=== PATIENT | male | born 1940 | race Caucasian/White ===

== ENCOUNTER 2022-04-22 11:48 | Inpatient (IN) ==
[2022-04-22 12:31] LABS: Basophils # 0.1 K/mcL (0.0-0.2); Basophils % 0.8 %; Eosinophils # 0.4 K/mcL (0.0-0.6); Eosinophils % 4.8 %; Hematocrit 25.6 % (37.5-50.1); Hemoglobin 8.1 g/dL (12.9-16.9); Immature Granulocytes % 0.3 % (0-4); Lymphocytes # 1.8 K/mcL (0.6-4.6); Lymphocytes % 22.9 %; Mean Corpuscular HGB Conc 31.6 g/dL (31.6-35.5); Mean Corpuscular Hemoglobin 29.5 pg (28.0-33.3); Mean Corpuscular Volume 93.1 fL (83.0-100.0); Mean Platelet Volume 10.3 fL (9.4-12.4); Monocytes # 0.6 K/mcL (0.0-1.3); Monocytes % 7.9 %; Neutrophils # 5.1 K/mcL (1.6-8.9); Platelet Count 292 K/mcL (140-400); Red Blood Count 2.75 M/mcL (4.19-5.50); Red Cell Distribution Width 16.6 % (11.5-14.5); Segmented Neutrophils % 63.3 %
[2022-04-22 12:45] LABS: INR 1.2; Prothrombin Time 13.5 Seconds (9.4-12.1)
[2022-04-22 12:51] LABS: Albumin 4.1 g/dL (3.5-5.7); Albumin/Globulin Ratio 1.2 (1.1-2.2); Bilirubin,Direct 0.1 mg/dL (0.0-0.2); Bilirubin,Total 0.4 mg/dL (0.3-1.0); Calcium 9.4 mg/dL (8.6-10.3); Globulin 3.5 g/dL (2.4-3.5); Magnesium 2.1 mg/dL (1.6-2.6); Phosphorous 5.2 mg/dL (2.7-4.5); Potassium 4.6 mEq/L (3.5-5.1); Total Protein 7.6 g/dL (6.4-8.9)
[2022-04-22] MEDS ORDERED: Furosemide 40 MG/4 ML VIAL IVP ONE (17:38)
[2022-04-22] MEDS ORDERED: 0.9 % Sodium Chloride 1,000 ML IVC SCH ×2 (17:45→19:32)
[2022-04-22] MEDS ORDERED: MOM Conc 10 ML UD.LIQ PO PRN (19:30)
[2022-04-22] MEDS ORDERED: Ondansetron 4 MG/2 ML VIAL IVP PRN (19:32)
[2022-04-22] MEDS ORDERED: Naloxone 0.4 MG/ML INJ IVP PRN (19:32)
[2022-04-22] MEDS: Gabapentin 300 MG CAPSULE PO SCH (22:44)
[2022-04-22] MEDS: Mirtazapine 15 MG TABLET PO SCH (22:44)
[2022-04-22] MEDS: Doxycycline 100 MG in 0.9 % Sodium Chloride Mini Bag 100 ML IVPB SCH (22:45)
[2022-04-22] MEDS: Sennosides/Docusate Sodium TABLET PO SCH (22:45)
[2022-04-23] MEDS: Doxycycline 100 MG in 0.9 % Sodium Chloride Mini Bag 100 ML IVPB SCH ×2 (05:37→18:59)
[2022-04-23 07:42] LABS: Basophils % 0.4 %; Eosinophils # 0.4 K/mcL (0.0-0.6); Eosinophils % 5.5 %; Hematocrit 22.8 % (37.5-50.1); Hemoglobin 7.2 g/dL (12.9-16.9); Immature Granulocytes % 0.3 % (0-4); Lymphocytes # 1.7 K/mcL (0.6-4.6); Lymphocytes % 25.2 %; Mean Corpuscular HGB Conc 31.6 g/dL (31.6-35.5); Mean Corpuscular Hemoglobin 29.3 pg (28.0-33.3); Mean Corpuscular Volume 92.7 fL (83.0-100.0); Mean Platelet Volume 10.1 fL (9.4-12.4); Monocytes # 0.6 K/mcL (0.0-1.3); Monocytes % 8.6 %; Platelet Count 253 K/mcL (140-400); Red Blood Count 2.46 M/mcL (4.19-5.50); Red Cell Distribution Width 16.6 % (11.5-14.5); White Blood Count 6.7 K/mcL (4.3-11.1)
[2022-04-23 07:55] LABS: Magnesium 2.1 mg/dL (1.6-2.6); Potassium 4.4 mEq/L (3.5-5.1)
[2022-04-23 09:10] LABS: Adenovirus Not Detected (Not Detect); Coronavirus 229E Not Detected (Not Detect); Coronavirus HKU1 Not Detected (Not Detect); Coronavirus NL63 Not Detected (Not Detect); Coronavirus OC43 Not Detected (Not Detect); Human Metapneumovirus Not Detected (Not Detect); Human Rhinovirus/Enterovirus Not Detected (Not Detect); SARS-CoV-2 Not Detected (Not Detect)
[2022-04-23 09:11] LABS: Bordetella Pertussis Not Detected (Not Detect); Chlamydophila pneumoniae Not Detected (Not Detect); Influenza A Subtype 2009 H1 Not Detected (Not Detect); Influenza B Not Detected (Not Detect); Mycoplasma pneumoniae Not Detected (Not Detect); Parainfluenza Virus 1 Not Detected (Not Detect); Parainfluenza Virus 2 Not Detected (Not Detect); Parainfluenza Virus 3 Not Detected (Not Detect); Parainfluenza Virus 4 Not Detected (Not Detect); Respiratory Syncytial Virus Not Detected (Not Detect)
[2022-04-23] MEDS: Venlafaxine XR (24 HR) 75 MG CAP.ER.24H PO SCH (09:36)
[2022-04-23] MEDS: Gabapentin 300 MG CAPSULE PO SCH (09:36)
[2022-04-23] MEDS: Finasteride 5 MG TABLET PO SCH (09:36)
[2022-04-23] MEDS: Cyanocobalamin (B-12) 1,000 MCG TABLET PO SCH (09:36)
[2022-04-23] MEDS: Furosemide 40 MG/4 ML VIAL IVP SCH (09:37)
[2022-04-23] MEDS: Sennosides/Docusate Sodium TABLET PO SCH ×2 (09:37→22:27)
[2022-04-23] MEDS: Nicotine 21 MG PATCH.TD24 TD SCH (09:37)
[2022-04-23 12:49] LABS: Albumin 3.7 g/dL (3.5-5.7); Albumin/Globulin Ratio 1.3 (1.1-2.2); Bilirubin,Total 0.3 mg/dL (0.3-1.0); Calcium 8.9 mg/dL (8.6-10.3); Globulin 2.9 g/dL (2.4-3.5); Potassium 4.4 mEq/L (3.5-5.1); Total Protein 6.6 g/dL (6.4-8.9)
[2022-04-23] MEDS ORDERED: 0.9 % Sodium Chloride 1,000 ML IVC SCH (14:45)
[2022-04-23 15:06] LABS: Procalcitonin 0.77 ng/mL (0.00-0.15)
[2022-04-23 15:55] LABS: Prealbumin 22.7 mg/dL (17.0-34.0)
[2022-04-23] MEDS: Iron Sucrose Complex 200 MG in 0.9 % Sodium Chloride 100 ML IVPB SCH (18:09)
[2022-04-23] MEDS: D5% in 0.45% NACL 1,000 ML IVC SCH (19:00)
[2022-04-23] MEDS: Mirtazapine 15 MG TABLET PO SCH (22:27)
[2022-04-24 05:46] LABS: Hemoglobin 7.6 g/dL (12.9-16.9); Mean Corpuscular HGB Conc 31.7 g/dL (31.6-35.5); Mean Corpuscular Hemoglobin 29.5 pg (28.0-33.3); Mean Platelet Volume 10.3 fL (9.4-12.4); Platelet Count 267 K/mcL (140-400); Red Blood Count 2.58 M/mcL (4.19-5.50); Red Cell Distribution Width 16.5 % (11.5-14.5); White Blood Count 7.1 K/mcL (4.3-11.1)
[2022-04-24 06:03] LABS: Calcium 9.3 mg/dL (8.6-10.3); Magnesium 1.9 mg/dL (1.6-2.6)
[2022-04-24] MEDS: Doxycycline 100 MG in 0.9 % Sodium Chloride Mini Bag 100 ML IVPB SCH ×2 (06:04→17:50)
[2022-04-24] MEDS: Sennosides/Docusate Sodium TABLET PO SCH ×2 (09:34→19:47)
[2022-04-24] MEDS: Gabapentin 300 MG CAPSULE PO SCH (09:34)
[2022-04-24] MEDS: Venlafaxine XR (24 HR) 75 MG CAP.ER.24H PO SCH (09:34)
[2022-04-24] MEDS: Finasteride 5 MG TABLET PO SCH (09:34)
[2022-04-24] MEDS: Iron Sucrose Complex 200 MG in 0.9 % Sodium Chloride 100 ML IVPB SCH (09:34)
[2022-04-24] MEDS: Cyanocobalamin (B-12) 1,000 MCG TABLET PO SCH (09:35)
[2022-04-24] MEDS: Nicotine 21 MG PATCH.TD24 TD SCH (09:35)
[2022-04-24] MEDS: Furosemide 40 MG/4 ML VIAL IVP SCH (09:35)
[2022-04-24] MEDS: D5% in 0.45% NACL 1,000 ML IVC SCH ×2 (10:55→10:58)
[2022-04-24] MEDS: Acetaminophen 325 MG TABLET PO PRN (19:46)
[2022-04-24] MEDS: Mirtazapine 15 MG TABLET PO SCH (19:47)
[2022-04-25] MEDS: D5% in 0.45% NACL 1,000 ML IVC SCH ×2 (01:41→09:26)
[2022-04-25] MEDS: Doxycycline 100 MG in 0.9 % Sodium Chloride Mini Bag 100 ML IVPB SCH ×2 (06:40→16:04)
[2022-04-25] MEDS: Ipratropium/Albuterol Neb 3 ML IH PRN (07:22)
[2022-04-25 07:47] LABS: Hematocrit 23.5 % (37.5-50.1); Hemoglobin 7.5 g/dL (12.9-16.9); Mean Corpuscular HGB Conc 31.9 g/dL (31.6-35.5); Mean Corpuscular Hemoglobin 29.6 pg (28.0-33.3); Mean Corpuscular Volume 92.9 fL (83.0-100.0); Platelet Count 265 K/mcL (140-400); Red Blood Count 2.53 M/mcL (4.19-5.50); Red Cell Distribution Width 16.2 % (11.5-14.5); White Blood Count 7.2 K/mcL (4.3-11.1)
[2022-04-25 08:06] LABS: Albumin 4.1 g/dL (3.5-5.7); Albumin/Globulin Ratio 1.3 (1.1-2.2); Bilirubin,Total 0.3 mg/dL (0.3-1.0); Calcium 9.2 mg/dL (8.6-10.3); Globulin 3.1 g/dL (2.4-3.5); Magnesium 1.8 mg/dL (1.6-2.6); Potassium 4.2 mEq/L (3.5-5.1); Total Protein 7.2 g/dL (6.4-8.9)
[2022-04-25] MEDS: Cyanocobalamin (B-12) 1,000 MCG TABLET PO SCH (09:15)
[2022-04-25] MEDS: Nicotine 21 MG PATCH.TD24 TD SCH (09:15)
[2022-04-25] MEDS: Finasteride 5 MG TABLET PO SCH (09:15)
[2022-04-25] MEDS: Venlafaxine XR (24 HR) 75 MG CAP.ER.24H PO SCH (09:15)
[2022-04-25] MEDS: Gabapentin 300 MG CAPSULE PO SCH (09:15)
[2022-04-25] MEDS: Sennosides/Docusate Sodium TABLET PO SCH ×2 (09:15→20:13)
[2022-04-25] MEDS: Iron Sucrose Complex 200 MG in 0.9 % Sodium Chloride 100 ML IVPB SCH (09:16)
[2022-04-25] MEDS ORDERED: D5% in 0.45% NACL 1,000 ML IVC SCH (10:49)
[2022-04-25] MEDS: amLODIPine 5 MG TABLET PO SCH (11:25)
[2022-04-25 14:24] LABS: Bilirubin,Urine Negative (Negative); Blood,Urine Negative (Negative); Clarity,Urine Clear (Clear); Color,Urine Yellow (Yellow); Glucose,Urine (UA) Normal (Normal); Ketones,Urine Negative (Negative); Leukocyte Esterase,Urine Negative (Negative); Nitrite,Urine Negative (Negative); Protein,Urine 30 mg/dL (Neg-Trace); Specific Gravity,Urine 1.015 (1.010-1.025); Urobilinogen,Urine Normal (Normal)
[2022-04-25 14:27] LABS: Squamous Epithelial Cell,Urine Few per hpf (None-Few); WBC,Urine 0-3 per hpf (0-3)
[2022-04-25 14:28] LABS: Bacteria,Urine None Seen per hpf (None-Few)
[2022-04-25] MEDS: Acetaminophen 325 MG TABLET PO PRN (15:52)
[2022-04-25] MEDS: Sodium Bicarbonate 50 MEQ in 0.45 % Sodium Chloride 1,000 ML IVC SCH (17:16)
[2022-04-25 18:12] LABS: Sodium, Urine 30.7 mEq/L
[2022-04-25] MEDS: hydrALAZINE 10 MG TABLET PO PRN (18:24)
[2022-04-25] MEDS ORDERED: *HR* HYDROcodone/Acet 5/325 mg TABLET PO PRN ×2 (18:46)
[2022-04-25] MEDS ORDERED: haloperidoL 1 MG TABLET PO PRN (18:47)
[2022-04-25] MEDS: Mirtazapine 15 MG TABLET PO SCH (20:14)
[2022-04-25] MEDS ORDERED: *HR* LORazepam 0.5 MG TABLET PO PRN (21:00)
[2022-04-26] MEDS: Ipratropium/Albuterol Neb 3 ML IH PRN (02:23)
[2022-04-26] MEDS: Doxycycline 100 MG in 0.9 % Sodium Chloride Mini Bag 100 ML IVPB SCH ×3 (05:01→19:50)
[2022-04-26] MEDS: Cyanocobalamin (B-12) 1,000 MCG TABLET PO SCH (08:14)
[2022-04-26] MEDS: Venlafaxine XR (24 HR) 75 MG CAP.ER.24H PO SCH (08:15)
[2022-04-26] MEDS: amLODIPine 5 MG TABLET PO SCH (08:15)
[2022-04-26] MEDS: Sodium Bicarbonate 50 MEQ in 0.45 % Sodium Chloride 1,000 ML IVC SCH (08:15)
[2022-04-26] MEDS: Gabapentin 100 MG CAPSULE PO SCH (08:15)
[2022-04-26] MEDS: Sennosides/Docusate Sodium TABLET PO SCH ×2 (08:15→20:02)
[2022-04-26] MEDS: Finasteride 5 MG TABLET PO SCH (08:15)
[2022-04-26] MEDS: Nicotine 21 MG PATCH.TD24 TD SCH (08:15)
[2022-04-26] MEDS: Iron Sucrose Complex 200 MG in 0.9 % Sodium Chloride 100 ML IVPB SCH (10:55)
[2022-04-26 11:04] LABS: Hematocrit 25.5 % (37.5-50.1); Hemoglobin 7.9 g/dL (12.9-16.9); Mean Corpuscular Hemoglobin 29.2 pg (28.0-33.3); Mean Corpuscular Volume 94.1 fL (83.0-100.0); Mean Platelet Volume 10.3 fL (9.4-12.4); Platelet Count 286 K/mcL (140-400); Red Blood Count 2.71 M/mcL (4.19-5.50); Red Cell Distribution Width 16.5 % (11.5-14.5); White Blood Count 7.1 K/mcL (4.3-11.1)
[2022-04-26 11:24] LABS: Albumin 4.5 g/dL (3.5-5.7); Albumin/Globulin Ratio 1.4 (1.1-2.2); Bilirubin,Total 0.3 mg/dL (0.3-1.0); Calcium 9.5 mg/dL (8.6-10.3); Globulin 3.3 g/dL (2.4-3.5); Magnesium 1.8 mg/dL (1.6-2.6); Phosphorous 4.8 mg/dL (2.7-4.5); Potassium 4.1 mEq/L (3.5-5.1); Total Protein 7.8 g/dL (6.4-8.9)
[2022-04-26] MEDS: Acetaminophen 325 MG TABLET PO PRN (16:17)
[2022-04-26] MEDS: hydrALAZINE 10 MG TABLET PO PRN ×2 (16:17→21:40)
[2022-04-26] MEDS: Mirtazapine 15 MG TABLET PO SCH (20:01)
[2022-04-26] MEDS: hydrALAZINE 10 MG TABLET PO SCH ×2 (20:02→21:35)
[2022-04-26] MEDS ORDERED: Nitroglycerin 0.4 MG TAB.SUBL SL ONE (22:47)
[2022-04-26] MEDS ORDERED: Morphine Sulfate 2 MG/ML SYRINGE IVP ONE (22:49)
[2022-04-27] MEDS ORDERED: Nitroglycerin 0.1 MG PATCH.TD24 TD SCH (00:15)
[2022-04-27] MEDS: Ipratropium/Albuterol Neb 3 ML IH PRN (00:21)
[2022-04-27] MEDS: Acetaminophen 325 MG TABLET PO PRN ×2 (03:29→15:30)
[2022-04-27] MEDS: hydrALAZINE 10 MG TABLET PO PRN (03:40)
[2022-04-27 04:55] LABS: VBG HCO3 22 mEq/L (21-27); VBG PCO2 45 mmHg (41-51); VBG PO2 55 mmHg (25-50)
[2022-04-27 05:01] LABS: Calcium 8.8 mg/dL (8.6-10.3); Potassium 3.8 mEq/L (3.5-5.1)
[2022-04-27 05:13] LABS: Basophils % 0.6 %; Eosinophils # 0.4 K/mcL (0.0-0.6); Eosinophils % 7.1 %; Hematocrit 19.4 % (37.5-50.1); Immature Granulocytes % 0.2 % (0-4); Lymphocytes # 1.5 K/mcL (0.6-4.6); Lymphocytes % 23.4 %; Mean Corpuscular HGB Conc 31.4 g/dL (31.6-35.5); Mean Corpuscular Hemoglobin 29.2 pg (28.0-33.3); Mean Corpuscular Volume 92.8 fL (83.0-100.0); Mean Platelet Volume 10.3 fL (9.4-12.4); Monocytes # 0.6 K/mcL (0.0-1.3); Monocytes % 8.9 %; Neutrophils # 3.7 K/mcL (1.6-8.9); Platelet Count 253 K/mcL (140-400); Red Blood Count 2.09 M/mcL (4.19-5.50); Red Cell Distribution Width 16.4 % (11.5-14.5); Segmented Neutrophils % 59.8 %; White Blood Count 6.2 K/mcL (4.3-11.1)
[2022-04-27] MEDS: Doxycycline 100 MG in 0.9 % Sodium Chloride Mini Bag 100 ML IVPB SCH ×2 (05:27→17:29)
[2022-04-27 05:44] LABS: Hemoglobin 6.1 g/dL (12.9-16.9)
[2022-04-27 06:53] LABS: Basophils % 0.5 %; Eosinophils # 0.4 K/mcL (0.0-0.6); Eosinophils % 6.6 %; Hematocrit 19.6 % (37.5-50.1); Hemoglobin 6.1 g/dL (12.9-16.9); Immature Granulocytes % 0.3 % (0-4); Lymphocytes # 1.3 K/mcL (0.6-4.6); Lymphocytes % 21.1 %; Mean Corpuscular HGB Conc 31.1 g/dL (31.6-35.5); Mean Corpuscular Volume 93.3 fL (83.0-100.0); Mean Platelet Volume 9.6 fL (9.4-12.4); Monocytes # 0.6 K/mcL (0.0-1.3); Monocytes % 9.5 %; Neutrophils # 3.9 K/mcL (1.6-8.9); Platelet Count 228 K/mcL (140-400); Red Cell Distribution Width 16.3 % (11.5-14.5); White Blood Count 6.3 K/mcL (4.3-11.1)
[2022-04-27] MEDS ORDERED: 0.9 % Sodium Chloride 250 ML IVC SCH (08:00)
[2022-04-27] MEDS ORDERED: Piperacillin/Tazobactam 3.375 GM in 0.9 % Sodium Chloride Mini Bag 100 ML IVPB SCH ×2 (09:00→09:10)
[2022-04-27] MEDS ORDERED: amLODIPine 5 MG TABLET PO SCH (09:00)
[2022-04-27] MEDS ORDERED: Furosemide 20 MG/2 ML VIAL IVP ONE ×2 (09:06→15:21)
[2022-04-27] MEDS ORDERED: Furosemide 40 MG/4 ML VIAL IVP ONE (09:07)
[2022-04-27] MEDS ORDERED: amLODIPine 5 MG TABLET PO ONE (09:33)
[2022-04-27] MEDS: Nicotine 21 MG PATCH.TD24 TD SCH (09:53)
[2022-04-27] MEDS: Gabapentin 100 MG CAPSULE PO SCH (09:54)
[2022-04-27] MEDS: Finasteride 5 MG TABLET PO SCH (09:54)
[2022-04-27] MEDS: Sennosides/Docusate Sodium TABLET PO SCH ×2 (09:54→20:18)
[2022-04-27] MEDS: Cyanocobalamin (B-12) 1,000 MCG TABLET PO SCH (09:55)
[2022-04-27] MEDS: hydrALAZINE 10 MG TABLET PO SCH ×3 (09:55→20:19)
[2022-04-27] MEDS: Iron Sucrose Complex 200 MG in 0.9 % Sodium Chloride 100 ML IVPB SCH (11:40)
[2022-04-27] MEDS ORDERED: Venlafaxine XR (24 HR) 75 MG CAP.ER.24H PO SCH (18:10)
[2022-04-27 19:01] LABS: Protein/Creatinine Ratio,Urine 0.38 mg/mg (0.00-0.20)
[2022-04-27 19:17] VITALS: RESP 24
[2022-04-27] MEDS: Mirtazapine 15 MG TABLET PO SCH (20:18)
[2022-04-27 23:56] VITALS: BP 168/65; PULSE 86; TEMP 98.4; O2SAT 99
== END 2022-04-28 00:41 | disposition short-term general hospital (02) | DRG 682 ==
LOC: INPGRE 11:48 → EMEROOGRE 11:48 → INPGRE 19:32
PROVIDERS: ADMIT Family Medicine; ATTEND Family Medicine